=== PATIENT | female | born 1950 | race Caucasian/White ===

== ENCOUNTER 2019-11-16 06:04 | Day surgery (SDC) | payer OTHER ==
[~2019-11-16] VITALS: Ht 160 cm; Wt 49.9 kg
--- NOTE | ~2019-11-16 | O ---
[facility] [place] [address] OPERATIVE REPORT Name: ALEXIS CASTILLO Room #: 150-3 [facility]#: [id number] Admission: 11/16/19 Attend Phys: Hai Birmingham MD Discharge: Date of : 46 Report #: [id number] THIS REPORT FOR: cc: Scott Carl,Hai Becker MD ~ THIS REPORT FOR: //name// CC: Scott Solano DATE OF SERVICE: 11/16/2019 SURGEON: Hai Birmingham MD PREOPERATIVE DIAGNOSIS: Left nasal lacrimal duct obstruction. POSTOPERATIVE DIAGNOSIS: Left nasal lacrimal duct obstruction. OPERATION PERFORMED: Left endoscopic balloon dacryocystoplasty with silicone intubation. ANESTHESIA: General. COMPLICATIONS: None. INDICATIONS FOR SURGERY: This patient has acquired unilateral nasal lacrimal duct stenosis with chronic tearing and discharge. The current procedures are undertaken in order to improve the patient's level of lacrimal outflow and visual clarity. Informed consent was obtained to include but not limited to the potential risks for damage to the eye, loss of vision, bleeding, infection, failure to improve the problem and need for further surgery. DESCRIPTION OF OPERATION: The patient was taken to the operating room, where general anesthesia was administered. The medial canthus was anesthetized with 2% Xylocaine with epinephrine mixed with equal parts of 0.75% Marcaine with Wydase. The lateral wall of the nose was then injected with the same anesthetic mixture. The nose was packed with Afrin-soaked Cottonoids. The patient was then prepped and draped in the usual sterile fashion. The superior and inferior puncta were then atraumatically dilated with a punctum dilator. A size 0 lacrimal probe was then passed through the superior canalicular system and through the stenosed nasal lacrimal duct. The nasal [facility] [address] [place] [address] OPERATIVE REPORT Name: ALEXIS CASTILLO Room #: 150-3 [facility]#: [id number] Admission: 11/16/19 Attend Phys: Hai Birmingham MD Discharge: Date of : 46 Report #: [id number] packing was removed and the endoscope was brought into the field. The inferior turbinate was gently infractured with a Almo periosteal elevator to allow visualization of the inferior meatus in the area of the opening of the valve of Hasner in the nose. The probe was found and confirmed to be in the proper location. It was removed and subsequently replaced with a size 1 and a size 2 Nolen probe, which also had their passage confirmed endoscopically to be in the proper location. A 3 x 15 LacriCatheter was lubricated with a small quantity of ophthalmic antibiotic ointment. The LacriCatheter was then passed through the superior canalicular system and the stenosed nasal lacrimal duct. The LacriCatheter was confirmed to be in the proper location endoscopically intranasally in the inferior meatus. The LacriCatheter was inflated to 9 atmospheres for 90 seconds and deflated. The catheter was then inflated to 9 atmospheres for 60 seconds. The catheter was then withdrawn to the proximal black ring. It was then inflated to 9 atmospheres for 90 seconds. The balloon was then deflated and reinflated to 9 atmospheres for 60 seconds. The balloon was the aspirated and withdrawn to the distal black ring. It was then inflated to 9 atmospheres for 90 seconds. The balloon was deflated and reinflated to 9 atmospheres for 60 seconds. The balloon was then deflated and vigorously aspirated as it was withdrawn through the superior canalicular system. A Diego tube was then passed through the superior canalicular system and out the dilated duct. The Diego tube was secured under the inferior turbinate in the inferior meatus with a Diego hook and retrieved endoscopically. The Diego tube was then passed through the inferior canalicular system in a similar fashion and was retrieved endoscopically in the nose atraumatically. The Diego tube was then secured to itself with 3 square throws and then to the lateral wall of the nose with a 5-0 Prolene suture. Antibiotic steroid drops were then placed in the eye. A small quantity of ophthalmic antibiotic ointment was placed on the Diego tube. The patient was then transported to the recovery area with no anesthetic or operative complications being noted. By: [id number] Hai Birmingham MD /nt
[~2019-11-16 06:04] MED LIST: BRIMONIDINE 0.110 ML OPHTHALMIC; CALCIUM 600 +1 EA11 PO; DIGITEK125 MC2 PO; GLUMETZA1000 PO; LATANOPROST 0.2.5 ML OPHTHALMIC; LIDOCAINE5 GM TOP; MAGNESIUM250 M1 PO; MELATONIN10 M3 PO; MULTIVITAMINS PO; STOOL SOFTENER100 MG PO; TIMOLOL MALEATE5 M2 OPHTHALMIC; TOPROL XL25 MG PO; VITAMIN B-12500 MCG PO; VITAMIN B-6100 MG PO; XARELTO20 MG PO; ZOCOR20 MG PO
[2019-11-16 07:00] VITALS: BP 142/77
[2019-11-16 07:48] LABS: CALCIUM 8.7 mg/dL (8.5-10.1); CREATININE 0.7 mg/dL (0.6-1.0)
== END 2019-11-16 10:06 | disposition home or self-care (01) ==
LOC: TBA 06:04 → OR 06:04
PROVIDERS: Ophthalmology
DX: H04.552 Acquired stenosis of left nasolacrimal duct (principal); I10 Essential (primary) hypertension; E11.9 Type 2 diabetes mellitus without complications; E78.00 Pure hypercholesterolemia, unspecified; J43.9 Emphysema, unspecified; H40.9 Unspecified glaucoma; I48.91 Unspecified atrial fibrillation; Z98.890 Other specified postprocedural states; Z79.899 Other long term (current) drug therapy; Z87.891 Personal history of nicotine dependence; Z85.118 Personal history of other malignant neoplasm of bronchus and lung
CPT/HCPCS: 50010; 50101; 50386; 50398; 51777; 55343; 56528; 62110; 62900; 64037; 70005